=== PATIENT | male | born 1960 | race Hispanic/Latino ===

== ENCOUNTER 2018-12-11 12:55 | Emergency (ER) | payer SELFPAY ==
[2018-12-11] MEDS ORDERED: Fentanyl 100 MCG/2 ML VIAL ONE (13:08)
[2018-12-11 13:13] LABS: #Eosinphils 0.3 thou/uL (0.0-0.7); #Monocytes 0.6 thou/uL (0.11-0.59); #Neutrophils 6.3 thou/uL (1.40-6.50); %Basophils 0.3 % (0.0-1.0); %Eosinophils 3.5 % (0.0-10.0); %Lymphocytes 21.7 % (21.0-51.0); %Neutrophils 68.6 % (42.0-75.0); Hemoglobin 14.8 g/dL (14.0-18.0); Mean Corpuscular Hemoglobin 28.9 pg (27.0-31.0); Mean Corpuscular Volume 87.5 fL (78.0-98.0); Mean Platelet Volume 7.8 fL (7.4-10.4); Platelet Count 183 thou/uL (130-400); RBC Distribution Width 12.1 % (11.5-14.5); Red Blood Cell (RBC) Count 5.14 mill/uL (4.70-6.10); White Blood Cell (WBC) Count 9.2 thou/uL (4.8-10.8)
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
[2018-12-11 13:34] LABS: ALT (SGPT) 26 U/L (8-55); AST (SGOT) 30 U/L (5-34); Albumin 4.3 g/dL (3.5-5.0); Alkaline Phosphatase 64 U/L (40-150); Anion Gap 14 mmol/L (10-20); BUN (Urea Nitrogen) 15 mg/dL (8.4-25.7); Bilirubin, Total 0.5 mg/dL (0.2-1.2); CK (CPK) 135 U/L (30-200); Calc. Creatinine Clearance 0 mL/min (70-130); Calcium 9.2 mg/dL (7.8-10.44); Carbon Dioxide 24 mmol/L (22-29); Chloride 103 mmol/L (98-107); Estimated GFR-MDRD 74; Glucose 114 mg/dL (70-105); Lipase 25 U/L (8-78); Potassium 3.6 mmol/L (3.5-5.1); Protein, Total 7.3 g/dL (6.0-8.3); Sodium 137 mmol/L (136-145)
[2018-12-11] MEDS ORDERED: Adacel (T-DAP) 0.5 ML SYRINGE ONE (15:06)
[2018-12-11] MEDS ORDERED: Iopamidol 370 76% 100 ML VIAL ONE (15:15)
== END 2018-12-11 15:33 | disposition home or self-care (01) ==
LOC: ERS 12:55
DX: S01.112A Laceration without foreign body of left eyelid and periocular area, initial encounter (principal); S01.312A Laceration without foreign body of left ear, initial encounter; S20.219A Contusion of unspecified front wall of thorax, initial encounter; V49.9XXA Car occupant (driver) (passenger) injured in unspecified traffic accident, initial encounter
CPT/HCPCS: 12013; 36415; 70450; 71260; 72125; 74177; 80053; 82550; 83690; 84484; 85025; 86850; 86900; 86901; 90471; 90715; 93005; 96374; G0390; J3010; Q9967